=== PATIENT | female | born 1950 | race Caucasian/White ===

== ENCOUNTER 2024-11-10 15:46 | Inpatient (IN) ==
--- NOTE | 2024-11-10 16:37 | Emergency Department Note ---
ED Visit Note I was consulted by the Advanced Practice Provider. I personally made or approved the management plan for the patient. I performed a substantive portion of the visit. This includes the aspects of: MDM. .
--- NOTE | 2024-11-10 16:39 | Emergency Department Note ---
History of Present Illness General Chief complaint: Facial Injury/Pain Stated complaint: SWOLLEN NECK, CHIN, EYES Time Seen by Provider: 11/10/24 16:16 History of Present Illness This is a 74-year-old female that presents to the emergency department via private vehicle with complaints of "swollen neck, chin, eyes". The patient notes this began yesterday earlier in the day. The patient notes that the edema was below her eyes bilaterally and in the neck. She notes the eyes are bit better today but the neck edema persists. She points to the submental region anteriorly as the location of edema. Minimal to no discomfort. She does note some chronic swelling to the left lateral side of the neck where she underwent carotid surgery in June at [facility]. The patient denies any fevers or chills. No nausea or vomiting. No chest pain or shortness of breath. No trouble breathing or swallowing. Home Medications Medication Instructions Recorded Confirmed Type Aspir-81 1 tab PO DAILY 11/10/24 11/10/24 History amlodipine 2.5 mg tablet 2.5 mg PO HS 11/10/24 11/10/24 History atorvastatin 40 mg tablet 40 mg PO QAM 11/10/24 11/10/24 History cyanocobalamin (vitamin B-12) 50 0 mcg PO DAILY 11/10/24 11/10/24 History mcg tablet (Vitamin B-12) escitalopram oxalate 10 mg tablet 10 mg PO QAM 11/10/24 11/10/24 History levothyroxine 112 mcg tablet 112 mcg PO QAM 11/10/24 11/10/24 History lisinopril 10 mg tablet 10 mg PO BID 11/10/24 11/10/24 History metformin 750 mg tablet,extended 750 mg PO QPM 11/10/24 11/10/24 History release 24 hr metoprolol succinate 50 mg 75 mg PO BID 11/10/24 11/10/24 History tablet,extended release 24 hr pantoprazole 40 mg tablet,delayed 40 mg PO BID 11/10/24 11/10/24 History release vit C 250 mg-vit E 90 mg-zinc 40 1 tab PO DAILY 11/10/24 11/10/24 History mg-copper 1 [id number] capsule (PreserVision AREDS-2) Allergies Allergy/AdvReac Type Severity Reaction Status Date / Time No Known Allergies Allergy Unknown Verified 11/10/24 19:18 Past Med/Surg History Problem List (Updated 11/10/24 @ 23:47 by Ravi Rader PA-C) Cellulitis of neck (Acute) Swollen neck (Acute) Social History Smoking Status: Never smoker Second Hand Exposure: No; Do You Dip or Chew Tobacco: No; Tobacco Cessation Education Requested by Patient: No Hx Alcohol Use: Yes Alcohol type: wine Hx Substance Use: No Preferred Language: Maori Communication Ability: Effective Window Tinter Required: No Beliefs That Will Affect Care: None Current Living Situation: Spouse Other Information That Helps Us Care for You: No Feels Safe at Home: Yes Safety Concerns: Feels Safe At This Time Assistive Devices: None Review of Systems A total of 10 systems reviewed and were otherwise negative Physical Exam Vital Signs Vital Signs - 24 hr 11/10/24 15:50 11/10/24 18:23 11/10/24 20:00 Temperature 36.9 C Temperature Source Temporal Artery Scan Pulse Rate 89 Pulse Rate [Finger] 87 70 Pulse Rhythm [Finger] Regular Pulse Strength [Finger] Normal Respiratory Rate 18 18 18 Respiratory Effort / Characteristics Non-Labored Spontaneous Non-Labored Respiratory Depth Normal Normal Respiratory Pattern Regular Regular Blood Pressure 159/83 H Blood Pressure [Right Arm] 155/84 H 139/78 Blood Pressure Mean 108 Blood Pressure Mean [Right Arm] 107 98 Blood Pressure Position [Right Arm] Sitting Pulse Oximetry 97 97 98 Oxygen Delivery Method Room Air Room Air Room Air Sepsis Recent Fever Within 48 Hours No Sepsis New/Unexplained Change in Mental Status N/A Sepsis Action Taken by Nursing No Action Required VITAL SIGNS - Vital signs and nursing notes were reviewed. Hypertensive, otherwise stable and afebrile. GENERAL -74-year-old female appearing her stated age who is in no acute distress. Communicates well with provider and answers questions appropriately. SKIN - Without rashes. There is submental edema noted with some firmness. No fluctuance. HEAD - NC/AT. EYES - PERRL with EOMI bilaterally. Sclera anicteric. EARS - No deformities of external structures noted on gross examination bilaterally. NOSE - Midline and without cyanosis. No epistaxis or purulent drainage noted. MOUTH/OROPHARYNX - Without perioral cyanosis. No drooling, stridor, trismus, wheezing or tripoding. Normal phonation. The right inferior dentition does have some erosion near the gumline with some erythema of the gingiva. NECK - Neck with FROM. There is submental edema noted with some firmness. No crepitus. No fluctuance. This tracks laterally left greater than right. No edema overlying the inferior aspect of the anterior neck. No nuchal rigidity. LUNGS - CTA CARDIAC - RRR ABDOMEN - Abdominal contour normal without pulsations or visible masses. BS normoactive all four quadrants. No tenderness, palpable masses, hepatosplenomegaly, or ascites noted. EXTREMITIES - No clubbing or peripheral cyanosis. +5/5 strength noted in UE/LE bilaterally. NEUROLOGIC - Cranial nerves II through XII grossly intact. PSYCH -alert, oriented and pleasant on exam Course Administered Medications Amlodipine Besylate (Amlodipine Besylate 5 Mg Tab) 2.5 mg PO HS GINI Stop: 12/10/24 22:19 Last Admin: 11/10/24 22:42 Dose: 2.5 mg Documented By: FILIBERTO Sodium Chloride (Nss) 500 mls @ 110 mls/hr IV .Q4H33M GINI Stop: 11/10/24 23:47 Last Infusion: 11/10/24 21:55 Dose: Infused Documented By: Admin: 11/10/24 20:30 Dose: 110 mls/hr Documented By: QIANA Ampicillin Sodium/Sulbactam Sodium (Unasyn) 3,000 mg in 100 mls @ 200 mls/hr IV Q6H GINI Stop: 11/12/24 22:59 Last Admin: 11/10/24 23:02 Dose: 200 mls/hr Documented By: FILIBERTO Lisinopril (Lisinopril 10 Mg Tab) 10 mg PO BID GINI Stop: 12/10/24 22:19 Last Admin: 11/10/24 22:42 Dose: 10 mg Documented By: FILIBERTO Metoprolol Succinate (Metoprolol Succ 25mg Ext Rel Tab) 75 mg PO BID GINI Stop: 12/10/24 22:19 Last Admin: 11/10/24 22:41 Dose: 75 mg Documented By: FILIBERTO Pantoprazole Sodium (Pantoprazole 40 Mg Tab) 40 mg PO BID GINI Stop: 12/10/24 22:19 Last Admin: 11/10/24 22:41 Dose: 40 mg Documented By: FILIBERTO Discontinued Medications Ampicillin Sodium/Sulbactam Sodium (Unasyn) 3,000 mg in 100 mls @ 200 mls/hr IV NOW STA Stop: 11/10/24 19:35 Last Infusion: 11/10/24 20:41 Dose: Infused Documented By: Admin: 11/10/24 19:26 Dose: 200 mls/hr Documented By: QIANA Ioversol (Optiray 320 100ml) 93 ml IV ONCE ONE Stop: 11/10/24 18:09 Last Admin: 11/10/24 18:08 Dose: 93 ml Documented By: FERN Medical Decision Making Laboratory Data 11/10/24 16:57 11/10/24 16:57 Lab Results 11/10/24 11/10/24 Range/Units 16:57 18:42 WBC 8.18 (4.8-10.8) K/ul RBC 3.31 L (4.20-5.40) M/uL Hgb 9.9 L (12.0-16.0) g/dl Hct 30.1 L (37.0-47.0) % MCV 90.9 (80.0-100.0) fL MCH 29.9 (25.0-34.0) pg MCHC 32.9 (32.0-36.0) g/dL RDW Std Deviation 42.6 (36.4-46.3) fL RDW Coeff of Fabiana 12.9 (11.5-14.5) % Plt Count 236 (130-400) K/uL MPV 9.2 L (9.4-12.4) fL Immature Gran % (Auto) 0.4 % Neut % (Auto) 68.5 % Lymph % (Auto) 17.8 % Mayes % (Auto) 9.3 % Eos % (Auto) 3.3 % Baso % (Auto) 0.7 % Neut # (Auto) 5.60 (1.40-6.50) K/uL Lymph # (Auto) 1.46 (1.20-3.40) K/uL Mayes # (Auto) 0.76 H (0.11-0.59) K/uL Eos # (Auto) 0.27 (0.00-0.50) K/uL Baso # (Auto) 0.06 (0.00-0.20) K/uL Immature Gran # (Auto) 0.03 (0.01-0.20) K/uL Sodium 138 (136-145) mmol/L Potassium 3.9 (3.5-5.1) mmol/L Chloride 105 (98-107) mmol/L Carbon Dioxide 25 (21-32) mmol/L Anion Gap 8 (3-11) BUN 25 H (6-23) mg/dl Creatinine 1.01 (0.6-1.2) mg/dl Est Cr Clr Drug Dosing 46.0 ml/min eGFR 58.42 BUN/Creatinine Ratio 24.8 H (10-20) Glucose 87 (70-99(Fasting)) mg/dl Calcium 9.2 (8.6-10.3) mg/dl Total Bilirubin 0.5 (0.2-1.0) mg/dl AST 13 (13-39) U/L ALT 11 (7-52) U/L Alkaline Phosphatase 48 (34-104) U/L Total Protein 6.1 (6.0-8.3) gm/dl Albumin 4.3 (3.4-5.0) gm/dl Globulin 1.8 L (2.5-4.0) gm/dl Albumin/Globulin Ratio 2.4 H (0.9-2) Procalcitonin < 0.02 (0-0.5) ng/ml Imaging Data Radiologist's Impression: Soft Tissue Neck CT 11/10/24 16:39 Clinical history: Submental edema Technique: Axial computed tomography images were obtained of the neck after the administration of intravenous contrast Findings: There is mild subcutaneous edema in the submental space and the anterior neck. The salivary glands appear unremarkable. There are small and mildly prominent submental and submandibular space lymph nodes, measuring up to 1 cm in short axis. No overt adenopathy is seen. No definite soft tissue mass is identified and no focal fluid collection is noted. No foreign body is evident No tonsillar enlargement is seen. There is no sign of epiglottitis or prevertebral inflammation. No definite abnormality of the larynx is noted. The thyroid gland is diminutive or absent. There are moderate severity stenoses of the carotid bulbs bilaterally. There is also an apparent moderate severity stenosis of the origin of the left subclavian artery. There are mucus retention cysts in the maxillary sinuses bilaterally. There is nasal septal deviation towards the right. There is mild partial opacification of the mastoid air cells. There is degenerative disc disease and osteoarthritis of the cervical spine. There is suspected pleural thickening in the lung apices Impression: 1. Mild subcutaneous edema anteriorly that could be due to cellulitis 2. No definite abscess or other Location 3. Mildly prominent lymph nodes without overt adenopathy 4. Chronic sinusitis 5. Atherosclerosis with moderate severity stenoses of the carotid bulbs bilaterally and of the proximal left subclavian artery 6. Mild partial opacification of the mastoid air cells, which may be due to inflammatory mastoiditis ACT 112: Positive. There are findings on this exam that require communication between the performing entity and the patient following Patient Test Result Information Act ([place] ACT 112) guidelines. Electronically signed by Teodoro Ramirez 11-10-2024 6:40 PM MDM Narrative Patient was seen and evaluated as above in room D2A. Review was performed of triage nursing notes and vital signs. I did review pertinent previous visits and patient history. After obtaining a thorough history and physical examination the above work up was performed. Patient presents to us today for evaluation of swelling to the anterior neck, and points to the submental region where on examination there is some fullness/edema that is somewhat firm without fluctuance. This tracks laterally toward the angle of the mandible left greater than right. Patient does note chronic edema to the left lateral superior neck where she had her carotid surgery back in June. She notes that she was informed this is expected however notes that the edema now in the submental region is all new as of yesterday. The patient otherwise is clinically well- appearing and nontoxic. There is perhaps a small amount of edema noted to the premaxillary soft tissues. Small amount of erythema to the premaxillary soft tissues. No erythema overlying the submental region. There is no drooling, stridor, trismus, wheezing or tripoding. Normal phonation. No evidence of airway compromise clinically. Options of care were discussed with the patient. IV access was established. Labs were drawn. There is no leukocytosis. There is anemia noted with hemoglobin of 9.9 but will note this is stable compared to previous. I did review the [employer] EMR and the patient's hemoglobin on 08/05/2024 was 9.5. Today there is mild elevation of BUN at 25. Glucose 87. No transaminitis. Pro-Erwin undetectable. Clinically no evidence of sepsis. Benefit versus risk of CT imaging reviewed with the patient and it is felt that the benefit of a contrasted CT scan outweighs the risk. CT scan of the neck soft tissue was obtained and is as above. There is comment of mild subcutaneous edema anteriorly could be due to cellulitis which I do agree with clinically. Other incidentals noted which I reviewed with the patient. I did discuss presentation with the on-call oral maxillofacial surgeon, Dr. Perry. Although there is no clinical evidence of abscess, on examination there is a fair amount of fullness noted at the submental region. I am concerned about a developing infection to this area. We discussed options. I do believe it would be best to have the patient stay in the hospital for IV antibiotics. Patient will be admitted by the medicine service. Case discussed with the hospitalist service. Please refer to further documentation regarding her stay. I did order IV antibiotics for the patient as well as IV maintenance fluids. GCS: 15 In the evaluation and treatment of this patient the following differential diagnoses were entertained: Cellulitis, abscess, Myles angina, allergic reaction, electrolyte disturbance, among others. Impression & Plan Cellulitis of neck, Swollen neck Discharge Plan Visit Data Chief Complaint: Facial Injury/Pain Stated Complaint: SWOLLEN NECK, CHIN, EYES ED Provider: Adiel Toscano ED Midlevel Provider: Ravi Rader Discharge Problem: Cellulitis of neck, Swollen neck Patient Disposition: Admitted As Inpatient Condition: Good Discharge Instructions Interventions: ED Discharge Assessment Last Done: 11/10/24 21:40
[2024-11-10 17:30] LABS: Basophils # (auto) 0.06 K/uL (0.00-0.20); Basophils % (auto) 0.7 %; Eosinophils # (auto) 0.27 K/uL (0.00-0.50); Eosinophils % (auto) 3.3 %; Hematocrit (blood only) 30.1 % (37.0-47.0); Hemoglobin 9.9 g/dl (12.0-16.0); Immature Granulocytes # (auto) 0.03 K/uL (0.01-0.20); Immature Granulocytes % (auto) 0.4 %; Lymphocytes # (auto) 1.46 K/uL (1.20-3.40); Lymphocytes % (auto) 17.8 %; Mean Corpuscular Hemoglobin 29.9 pg (25.0-34.0); Mean Corpuscular Hgb Conc 32.9 g/dL (32.0-36.0); Mean Corpuscular Volume 90.9 fL (80.0-100.0); Mean Platelet Volume 9.2 fL (9.4-12.4); Monocytes # (auto) 0.76 K/uL (0.11-0.59); Monocytes % (auto) 9.3 %; Neutrophils % (auto) 68.5 %; Platelet Count 236 K/uL (130-400); RDW Coefficient of Variation 12.9 % (11.5-14.5); RDW Standard Deviation 42.6 fL (36.4-46.3); Red Blood Count 3.31 M/uL (4.20-5.40); White Blood Count 8.18 K/ul (4.8-10.8)
[2024-11-10 17:50] LABS: Albumin Globulin Ratio 2.4 (0.9-2); Albumin Level 4.3 gm/dl (3.4-5.0); BUN Creatinine Ratio 24.8 (10-20); Bilirubin,Total 0.5 mg/dl (0.2-1.0); Calcium 9.2 mg/dl (8.6-10.3); Globulin 1.8 gm/dl (2.5-4.0); Potassium 3.9 mmol/L (3.5-5.1); Total Protein 6.1 gm/dl (6.0-8.3)
[2024-11-10] MEDS: OPTIRAY 320 100ml IV ONE (18:08)
--- NOTE | 2024-11-10 18:40 | CT Scan Report ---
Clinical history: Submental edema Technique: Axial computed tomography images were obtained of the neck after the administration of intravenous contrast Findings: There is mild subcutaneous edema in the submental space and the anterior neck. The salivary glands appear unremarkable. There are small and mildly prominent submental and submandibular space lymph nodes, measuring up to 1 cm in short axis. No overt adenopathy is seen. No definite soft tissue mass is identified and no focal fluid collection is noted. No foreign body is evident No tonsillar enlargement is seen. There is no sign of epiglottitis or prevertebral inflammation. No definite abnormality of the larynx is noted. The thyroid gland is diminutive or absent. There are moderate severity stenoses of the carotid bulbs bilaterally. There is also an apparent moderate severity stenosis of the origin of the left subclavian artery. There are mucus retention cysts in the maxillary sinuses bilaterally. There is nasal septal deviation towards the right. There is mild partial opacification of the mastoid air cells. There is degenerative disc disease and osteoarthritis of the cervical spine. There is suspected pleural thickening in the lung apices Impression: 1. Mild subcutaneous edema anteriorly that could be due to cellulitis 2. No definite abscess or other Location 3. Mildly prominent lymph nodes without overt adenopathy 4. Chronic sinusitis 5. Atherosclerosis with moderate severity stenoses of the carotid bulbs bilaterally and of the proximal left subclavian artery 6. Mild partial opacification of the mastoid air cells, which may be due to inflammatory mastoiditis ACT 112: Positive. There are findings on this exam that require communication between the performing entity and the patient following Patient Test Result Information Act ([place] ACT 112) guidelines. Electronically signed by Teodoro Ramirez 11-10-2024 6:40 PM
[2024-11-10] MEDS: AMPICILLIN/SULBACTAM SOD 3,000 MG/100 ML BAG IV STA (19:26)
[2024-11-10] MEDS: SODIUM CHLORIDE 0.9% 500 ML IV SCH (20:30)
--- NOTE | 2024-11-10 20:47 | History & Physical Report ---
Date of Service November 10, 2024 Assessment & Plan (1) Swollen neck: Plan: 74 years old female with past medical history of diabetes, hypertension, dyslipidemia, CAD status post carotid surgery in July presented to the ER with swelling under his chin/anterior neck area. Soft tissue CT neck showed mild subcutaneous edema anteriorly that could be due to cellulitis WBC within normal limit Received IV Unasyn in the ER, will continue antibiotic for now ER provider discussed the case with Oral maxillofacial Dr. Perry, that plan to eval her tomorrow Will consult OMF Dr. Perry Denies any shortness of breath, dysphagia, saturated well on RA Continue monitor closely S/P Carotid surgery CT showed atherosclerosis with moderate severity stenoses of the carotid bulbs bilaterally and of the proximal left subclavian artery Continue aspirin 81 mg and statin Hypertension Continue amlodipine 2.5mg and lisinopril 10 mg twice daily and Metoprolol Diabetes Will hold metformin due to recent IV contrast Will place on insulin sliding scale Will check hemoglobin A1c in the a.m. Anemia Hemoglobin 9.9 Denies any sign of abnormal bleeding such as hematuria or blood in stool Continue monitor CBC Hypothyroidism Continue levothyroxine 112 mcg Check TSH in a.m. GI prophylaxis Continue pantoprazole DVT prophylaxis heparin subcu daily CODE STATUS Full code History of Present Illness Chief Complaint: Swollen chin Primary Care Provider: Evelyn Cook DO 74 years old female with past medical history of diabetes, hypertension, dyslipidemia, CAD status post carotid surgery in July presented to the ER with swelling under his chin/anterior neck area. Patient said on Friday she noted her chin and under her both eyes were puffy. She said her daughter said she might be dehydrated. She tried to increase her water intake to hydrate herself. She said the edema under her eyes improved but her neck did not show any improvement. Pt said that she just got back from her vacation after a [address]; she went to the urgent care that sent her to the ER. She said that she had left carotid surgery done in July and she had some numbness around his left ear. Pt said said she does not have any pain or erythema around her neck. Soft tissue CT neck showed mild subcutaneous edema anteriorly that could be due to cellulitis. No definite abscess. Denies any fever, chills, shortness of breath, dysphagia, palpitation and chest pain. Allergies Allergy/AdvReac Type Severity Reaction Status Date / Time No Known Allergies Allergy Unknown Verified 11/10/24 19:18 Home Medications Medication Instructions Recorded Confirmed Type Aspir-81 1 tab PO DAILY 11/10/24 11/10/24 History amlodipine 2.5 mg tablet 2.5 mg PO HS 11/10/24 11/10/24 History atorvastatin 40 mg tablet 40 mg PO QAM 11/10/24 11/10/24 History cyanocobalamin (vitamin B-12) 50 0 mcg PO DAILY 11/10/24 11/10/24 History mcg tablet (Vitamin B-12) escitalopram oxalate 10 mg tablet 10 mg PO QAM 11/10/24 11/10/24 History levothyroxine 112 mcg tablet 112 mcg PO QAM 11/10/24 11/10/24 History lisinopril 10 mg tablet 10 mg PO BID 11/10/24 11/10/24 History metformin 750 mg tablet,extended 750 mg PO QPM 11/10/24 11/10/24 History release 24 hr metoprolol succinate 50 mg 75 mg PO BID 11/10/24 11/10/24 History tablet,extended release 24 hr pantoprazole 40 mg tablet,delayed 40 mg PO BID 11/10/24 11/10/24 History release vit C 250 mg-vit E 90 mg-zinc 40 1 tab PO DAILY 11/10/24 11/10/24 History mg-copper 1 [id number] capsule (PreserVision AREDS-2) Past Med/Surg History Problem List (Updated 11/10/24 @ 23:47 by Ravi Rader PA-C) Cellulitis of neck (Acute) Swollen neck (Acute) Social History Smoking Status: Never smoker Second Hand Exposure: No; Do You Dip or Chew Tobacco: No; Tobacco Cessation Education Requested by Patient: No Hx Alcohol Use: Yes Alcohol type: wine Hx Substance Use: No Preferred Language: Malian Communication Ability: Effective Aircraft Inspector Required: No Beliefs That Will Affect Care: None Current Living Situation: Spouse Other Information That Helps Us Care for You: No Feels Safe at Home: Yes Safety Concerns: Feels Safe At This Time Assistive Devices: None Review of Systems Review of Systems: All systems reviewed & are unremarkable except as noted in HPI & below Physical Exam Physical Exam: General- No acute distress Head- atraumatic Eyes- PERRL, EOMI, ENT- oropharynx clear Neck- supple, no JVD, surgical scar from left carotid surgery, submental edema noted with firmness. Lungs- clear to auscultation Heart- regular rhythm; no murmur Abdomen- normal bowel sounds, soft, nontender Extremities- no calf tenderness, +trace edema Neuro- alert, oriented x 3; PERRL, EOMI; no facial palsy; no dysarthria Skin- warm & dry Results & Data Results & Data Vital Signs (Past 12 Hours) Vital Signs Temp Pulse Pulse Resp BP BP Pulse Ox 11/10/24 18:23 87 18 155/84 H 97 11/10/24 15:50 36.9 C 89 18 159/83 H 97 O2 Del Method 11/10/24 18:23 Room Air 11/10/24 15:50 Room Air Diagnostic Findings Laboratory Results WBC 8.18 K/ul (4.8-10.8) 11/10/24 16:57 RBC 3.31 M/uL (4.20-5.40) L 11/10/24 16:57 Hgb 9.9 g/dl (12.0-16.0) L 11/10/24 16:57 Hct 30.1 % (37.0-47.0) L 11/10/24 16:57 MCV 90.9 fL (80.0-100.0) 11/10/24 16:57 MCH 29.9 pg (25.0-34.0) 11/10/24 16:57 MCHC 32.9 g/dL (32.0-36.0) 11/10/24 16:57 RDW Std Deviation 42.6 fL (36.4-46.3) 11/10/24 16:57 RDW Coeff of Fabiana 12.9 % (11.5-14.5) 11/10/24 16:57 Plt Count 236 K/uL (130-400) 11/10/24 16:57 MPV 9.2 fL (9.4-12.4) L 11/10/24 16:57 Immature Gran % (Auto) 0.4 % 11/10/24 16:57 Neut % (Auto) 68.5 % 11/10/24 16:57 Lymph % (Auto) 17.8 % 11/10/24 16:57 [place] % (Auto) 9.3 % 11/10/24 16:57 Eos % (Auto) 3.3 % 11/10/24 16:57 Baso % (Auto) 0.7 % 11/10/24 16:57 Neut # (Auto) 5.60 K/uL (1.40-6.50) 11/10/24 16:57 Lymph # (Auto) 1.46 K/uL (1.20-3.40) 11/10/24 16:57 [place] # (Auto) 0.76 K/uL (0.11-0.59) H 11/10/24 16:57 Eos # (Auto) 0.27 K/uL (0.00-0.50) 11/10/24 16:57 Baso # (Auto) 0.06 K/uL (0.00-0.20) 11/10/24 16:57 Immature Gran # (Auto) 0.03 K/uL (0.01-0.20) 11/10/24 16:57 Sodium 138 mmol/L (136-145) 11/10/24 16:57 Potassium 3.9 mmol/L (3.5-5.1) 11/10/24 16:57 Chloride 105 mmol/L (98-107) 11/10/24 16:57 Carbon Dioxide 25 mmol/L (21-32) 11/10/24 16:57 Anion Gap 8 (3-11) 11/10/24 16:57 BUN 25 mg/dl (6-23) H 11/10/24 16:57 Creatinine 1.01 mg/dl (0.6-1.2) 11/10/24 16:57 Est Cr Clr Drug Dosing 46.0 ml/min 11/10/24 16:57 eGFR 58.42 11/10/24 16:57 BUN/Creatinine Ratio 24.8 (10-20) H 11/10/24 16:57 Glucose 87 mg/dl (70-99(Fasting)) 11/10/24 16:57 Calcium 9.2 mg/dl (8.6-10.3) 11/10/24 16:57 Total Bilirubin 0.5 mg/dl (0.2-1.0) 11/10/24 16:57 AST 13 U/L (13-39) 11/10/24 16:57 ALT 11 U/L (7-52) 11/10/24 16:57 Alkaline Phosphatase 48 U/L (34-104) 11/10/24 16:57 Total Protein 6.1 gm/dl (6.0-8.3) 11/10/24 16:57 Albumin 4.3 gm/dl (3.4-5.0) 11/10/24 16:57 Globulin 1.8 gm/dl (2.5-4.0) L 11/10/24 16:57 Albumin/Globulin Ratio 2.4 (0.9-2) H 11/10/24 16:57 Procalcitonin < 0.02 ng/ml (0-0.5) 11/10/24 18:42 Impressions Soft Tissue Neck CT 11/10/24 16:39 Clinical history: Submental edema Technique: Axial computed tomography images were obtained of the neck after the administration of intravenous contrast Findings: There is mild subcutaneous edema in the submental space and the anterior neck. The salivary glands appear unremarkable. There are small and mildly prominent submental and submandibular space lymph nodes, measuring up to 1 cm in short axis. No overt adenopathy is seen. No definite soft tissue mass is identified and no focal fluid collection is noted. No foreign body is evident No tonsillar enlargement is seen. There is no sign of epiglottitis or prevertebral inflammation. No definite abnormality of the larynx is noted. The thyroid gland is diminutive or absent. There are moderate severity stenoses of the carotid bulbs bilaterally. There is also an apparent moderate severity stenosis of the origin of the left subclavian artery. There are mucus retention cysts in the maxillary sinuses bilaterally. There is nasal septal deviation towards the right. There is mild partial opacification of the mastoid air cells. There is degenerative disc disease and osteoarthritis of the cervical spine. There is suspected pleural thickening in the lung apices Impression: 1. Mild subcutaneous edema anteriorly that could be due to cellulitis 2. No definite abscess or other Location 3. Mildly prominent lymph nodes without overt adenopathy 4. Chronic sinusitis 5. Atherosclerosis with moderate severity stenoses of the carotid bulbs bilaterally and of the proximal left subclavian artery 6. Mild partial opacification of the mastoid air cells, which may be due to inflammatory mastoiditis ACT 112: Positive. There are findings on this exam that require communication between the performing entity and the patient following Patient Test Result Information Act ([place] ACT 112) guidelines. Electronically signed by Teodoro Ramirez 11-10-2024 6:40 PM
[2024-11-10] MEDS: PANTOprazole 40 MG TAB PO SCH (22:41)
[2024-11-10] MEDS: METOPROLOL SUCC 25MG EXT REL TAB PO SCH (22:41)
[2024-11-10] MEDS: amLODIPine BESYLATE 5 MG TAB PO SCH (22:42)
[2024-11-10] MEDS: lisinopril 10 MG TAB PO SCH (22:42)
[2024-11-10] MEDS ORDERED: GLUCAGON FOR INJ 1 MG VIAL SQ PRN (22:54)
[2024-11-10] MEDS ORDERED: DEXTROSE 50% 50 ML SYRINGE IV PRN (22:54)
[2024-11-10] MEDS ORDERED: GLUCOSE 40% GEL 15 GM TUBE PO PRN (22:54)
[2024-11-10] MEDS ORDERED: CARBOHYDRATES FOR HYPOGLYCEMIA PO PRN (22:54)
[2024-11-10] MEDS ORDERED: GLUCOSE 10 TAB/TUBE PO PRN (22:54)
[2024-11-10] MEDS: AMPICILLIN/SULBACTAM SOD 3,000 MG/100 ML BAG IV SCH (23:02)
[2024-11-11] MEDS: LEVOTHYROXINE SODIUM 112 MCG TABLET PO SCH (05:39)
[2024-11-11] MEDS ORDERED: HEPARIN SOD 5,000 UNIT/0.5 ML VIAL SQ SCH (06:00)
[2024-11-11 06:31] LABS: Hematocrit (blood only) 30.7 % (37.0-47.0); Hemoglobin 10.4 g/dl (12.0-16.0); Mean Corpuscular Hemoglobin 30.9 pg (25.0-34.0); Mean Corpuscular Hgb Conc 33.9 g/dL (32.0-36.0); Mean Corpuscular Volume 91.1 fL (80.0-100.0); Mean Platelet Volume 9.1 fL (9.4-12.4); Platelet Count 234 K/uL (130-400); RDW Coefficient of Variation 12.7 % (11.5-14.5); RDW Standard Deviation 41.9 fL (36.4-46.3); Red Blood Count 3.37 M/uL (4.20-5.40); White Blood Count 6.54 K/ul (4.8-10.8)
[2024-11-11 06:50] LABS: BUN Creatinine Ratio 22.6 (10-20); Calcium 8.8 mg/dl (8.6-10.3); Creatinine Clr Calc Pharmacy 49.9 ml/min
[2024-11-11 07:05] LABS: Thyroid Stimulating Hormone 1.442 uIu/ml (0.300-4.500)
[2024-11-11 07:16] LABS: Estimated Average Glucose 128 mg/dl; Hemoglobin A1C 6.1 % (4.5-5.6)
[2024-11-11 07:32] VITALS: BP 137/80; PULSE 75; RESP 18; TEMP 98.1; O2SAT 96
[2024-11-11] MEDS: INSULIN ASPART PER UNIT CHARGE SC SCH (08:37)
[2024-11-11] MEDS: HEPARIN SOD 5,000 UNIT/0.5 ML VIAL SQ SCH (08:41)
[2024-11-11] MEDS: ASPIRIN 81 MG ECTAB PO SCH (08:44)
[2024-11-11] MEDS: ESCITALOPRAM OXALATE 10 MG TAB PO SCH (08:45)
[2024-11-11] MEDS: ATORVASTATIN 40 MG TAB PO SCH (08:45)
[2024-11-11] MEDS ORDERED: NON-FORMULARY MEDICATION (Vit C,E-Zn-Coppr-Lutein-Zeaxan [Preservision Areds-2] 250-90-40- PO SCH (09:00)
[2024-11-11] MEDS ORDERED: NON-FORMULARY MEDICATION (Cyanocobalamin (Vitamin B-12) [Vitamin B-12] 50 mcg Tablet) PO SCH (09:00)
--- NOTE | 2024-11-11 12:03 | Hospitalist Progress Note ---
Date of Service November 11, 2024 Assessment & Plan (1) Swollen neck: Plan: 74 years old female with past medical history of diabetes, hypertension, dyslipidemia, CAD status post carotid surgery in July presented to the ER with swelling under his chin/anterior neck area. Soft tissue CT neck showed mild subcutaneous edema anteriorly that could be due to cellulitis Neck/Periorbital Swelling: Cellulitis/Allergic reaction Possible Mastoiditis Patient reports having some left sided neck swelling at site of prior left carotid endarterectomy Allergic reaction likely secondary to seafood Vs Dander Currently denies any shortness of breath, dysphagia, odynophagia --Neck CT:Mild subcutaneous edema anteriorly that could be due to cellulitis. No definite abscess or other Location. Mildly prominent lymph nodes without overt adenopathy. Chronic sinusitis. Atherosclerosis with moderate severity stenoses of the carotid bulbs bilaterally and of the proximal left subclavian artery. Mild partial opacification of the mastoid air cells, which may be due to inflammatory mastoiditis -- No signs of sepsis -- Normal TSH, procalcitonin levels Continue IV's Unasyn>> transition to Augmentin on discharge Discussed with oromaxillary surgery Dr. Perry today: Recommends steroid taper course. Will need follow-up with Dr. Perry and duplication specialist Dr. Gurrola. Patient understands and agrees Will start on prednisone tapering course Plan to discharge home today S/P Carotid surgery CT showed atherosclerosis with moderate severity stenoses of the carotid bulbs bilaterally and of the proximal left subclavian artery Continue aspirin 81 mg and statin Hypertension Continue amlodipine 2.5mg and lisinopril 10 mg twice daily and Metoprolol Monitor blood pressure DM II HbA1c 6.1 Hold oral medications Continue insulin while hospitalized per protocol Monitor blood glucose levels Normocytic Anemia Hb 10.4 today Denies any sign of abnormal bleeding such as hematuria or blood in stool Continue monitor CBC Further workup as outpatient Hypothyroidism Normal TSH Continue levothyroxine 112 mcg GI prophylaxis Continue pantoprazole DVT Px: Heparin SQ CODE STATUS Full code Disposition Home Admission and Anticipated Discharge Date Admission Date: November 10, 2024 Subjective Patient is seen and examined at bedside States feeling much better today Swelling of the periorbital region much improved Still has neck swelling Denies any chest pain, dyspnea, dizziness, nausea, vomiting, abdominal pain, dysphagia, odynophagia Review of Systems Review of Systems: All systems reviewed & are unremarkable except as noted in Subjective Physical Exam Physical Exam: Physical Exam: Vitals signs as noted above General Appearance:Moderately built and nourished, no apparent distress Head: normocephalic, Atraumatic Eyes: normal inspection, EOMI, periorbital swelling improved/resolved Neck: supple, Trachea midline,+Left carotid postsurgical region, submental swelling Respiratory/Chest: Normal breath sounds, CTA, No accessory muscle use Cardiovascular: S1, S2, No murmur Abdomen/GI:Soft, Non tender, Bowel sounds present Extremities/Musculoskeletal:normal inspection, no edema Neurologic/Psych:AAOX3, grossly no focal neurological deficits Skin: normal color, warm Results & Data Results & Data Vital Signs (Past 12 Hours) Vital Signs Temp Pulse Resp BP Pulse Ox O2 Del Method 11/11/24 07:52 Room Air 11/11/24 07:28 36.7 C 75 18 137/80 96 Room Air Laboratory Results Short CBC 11/10/24 11/11/24 Range/Units 16:57 05:55 WBC 8.18 6.54 (4.8-10.8) K/ul Hgb 9.9 L 10.4 L (12.0-16.0) g/dl Hct 30.1 L 30.7 L (37.0-47.0) % Plt Count 236 234 (130-400) K/uL BMP 11/10/24 11/11/24 16:57 05:55 Sodium 138 138 Potassium 3.9 4.0 Chloride 105 103 Carbon Dioxide 25 28 BUN 25 H 21 Creatinine 1.01 0.93 Glucose 87 103 H Calcium 9.2 8.8 Liver Function 11/10/24 Range/Units 16:57 Total Bilirubin 0.5 (0.2-1.0) mg/dl AST 13 (13-39) U/L ALT 11 (7-52) U/L Alkaline Phosphatase 48 (34-104) U/L Albumin 4.3 (3.4-5.0) gm/dl
--- NOTE | 2024-11-11 13:01 | Discharge Summary ---
Date of Service November 11, 2024 Admission HPI Per Admitting Provider 74 years old female with past medical history of diabetes, hypertension, dyslipidemia, CAD status post carotid surgery in July presented to the ER with swelling under his chin/anterior neck area. Patient said on Friday she noted her chin and under her both eyes were puffy. She said her daughter said she might be dehydrated. She tried to increase her water intake to hydrate herself. She said the edema under her eyes improved but her neck did not show any improvement. Pt said that she just got back from her vacation after a [address]; she went to the urgent care that sent her to the ER. She said that she had left carotid surgery done in July and she had some numbness around his left ear. Pt said said she does not have any pain or erythema around her neck. Soft tissue CT neck showed mild subcutaneous edema anteriorly that could be due to cellulitis. No definite abscess. Denies any fever, chills, shortness of breath, dysphagia, palpitation and chest pain. Admission Exam Per Admitting Provider General- No acute distress Head- atraumatic Eyes- PERRL, EOMI, ENT- oropharynx clear Neck- supple, no JVD, surgical scar from left carotid surgery, submental edema noted with firmness. Lungs- clear to auscultation Heart- regular rhythm; no murmur Abdomen- normal bowel sounds, soft, nontender Extremities- no calf tenderness, +trace edema Neuro- alert, oriented x 3; PERRL, EOMI; no facial palsy; no dysarthria Skin- warm & dry Principal Diagnosis Neck/Periorbital Swelling: Cellulitis/Allergic reaction Possible Mastoiditis Discharge Data Allergies Allergy/AdvReac Type Severity Reaction Status Date / Time No Known Allergies Allergy Unknown Verified 11/10/24 19:18 Consultations 11/10/24 19:43 ED Decision to Admit Stat 11/10/24 22:31 Consult Oromaxillofacial Surgery Routine Procedures Performed Laboratory Results WBC 6.54 K/ul (4.8-10.8) 11/11/24 05:55 RBC 3.37 M/uL (4.20-5.40) L 11/11/24 05:55 Hgb 10.4 g/dl (12.0-16.0) L 11/11/24 05:55 Hct 30.7 % (37.0-47.0) L 11/11/24 05:55 MCV 91.1 fL (80.0-100.0) 11/11/24 05:55 MCH 30.9 pg (25.0-34.0) 11/11/24 05:55 MCHC 33.9 g/dL (32.0-36.0) 11/11/24 05:55 RDW Std Deviation 41.9 fL (36.4-46.3) 11/11/24 05:55 RDW Coeff of Fabiana 12.7 % (11.5-14.5) 11/11/24 05:55 Plt Count 234 K/uL (130-400) 11/11/24 05:55 MPV 9.1 fL (9.4-12.4) L 11/11/24 05:55 Immature Gran % (Auto) 0.4 % 11/10/24 16:57 Neut % (Auto) 68.5 % 11/10/24 16:57 Lymph % (Auto) 17.8 % 11/10/24 16:57 [place] % (Auto) 9.3 % 11/10/24 16:57 Eos % (Auto) 3.3 % 11/10/24 16:57 Baso % (Auto) 0.7 % 11/10/24 16:57 Neut # (Auto) 5.60 K/uL (1.40-6.50) 11/10/24 16:57 Lymph # (Auto) 1.46 K/uL (1.20-3.40) 11/10/24 16:57 [place] # (Auto) 0.76 K/uL (0.11-0.59) H 11/10/24 16:57 Eos # (Auto) 0.27 K/uL (0.00-0.50) 11/10/24 16:57 Baso # (Auto) 0.06 K/uL (0.00-0.20) 11/10/24 16:57 Immature Gran # (Auto) 0.03 K/uL (0.01-0.20) 11/10/24 16:57 Sodium 138 mmol/L (136-145) 11/11/24 05:55 Potassium 4.0 mmol/L (3.5-5.1) 11/11/24 05:55 Chloride 103 mmol/L (98-107) 11/11/24 05:55 Carbon Dioxide 28 mmol/L (21-32) 11/11/24 05:55 Anion Gap 7 (3-11) 11/11/24 05:55 BUN 21 mg/dl (6-23) 11/11/24 05:55 Creatinine 0.93 mg/dl (0.6-1.2) 11/11/24 05:55 Est Cr Clr Drug Dosing 49.9 ml/min 11/11/24 05:55 eGFR 64.50 11/11/24 05:55 BUN/Creatinine Ratio 22.6 (10-20) H 11/11/24 05:55 Glucose 103 mg/dl (70-99(Fasting)) H 11/11/24 05:55 POC Glucose 100 mg/dl (70-99) H 11/11/24 11:40 Estimat Average Glucose 128 mg/dl 11/11/24 05:55 Hemoglobin A1c 6.1 % (4.5-5.6) H 11/11/24 05:55 Calcium 8.8 mg/dl (8.6-10.3) 11/11/24 05:55 Total Bilirubin 0.5 mg/dl (0.2-1.0) 11/10/24 16:57 AST 13 U/L (13-39) 11/10/24 16:57 ALT 11 U/L (7-52) 11/10/24 16:57 Alkaline Phosphatase 48 U/L (34-104) 11/10/24 16:57 Total Protein 6.1 gm/dl (6.0-8.3) 11/10/24 16:57 Albumin 4.3 gm/dl (3.4-5.0) 11/10/24 16:57 Globulin 1.8 gm/dl (2.5-4.0) L 11/10/24 16:57 Albumin/Globulin Ratio 2.4 (0.9-2) H 11/10/24 16:57 Procalcitonin < 0.02 ng/ml (0-0.5) 11/10/24 18:42 TSH 1.442 uIu/ml (0.300-4.500) 11/11/24 05:55 Impressions Soft Tissue Neck CT 11/10/24 16:39 Clinical history: Submental edema Technique: Axial computed tomography images were obtained of the neck after the administration of intravenous contrast Findings: There is mild subcutaneous edema in the submental space and the anterior neck. The salivary glands appear unremarkable. There are small and mildly prominent submental and submandibular space lymph nodes, measuring up to 1 cm in short axis. No overt adenopathy is seen. No definite soft tissue mass is identified and no focal fluid collection is noted. No foreign body is evident No tonsillar enlargement is seen. There is no sign of epiglottitis or prevertebral inflammation. No definite abnormality of the larynx is noted. The thyroid gland is diminutive or absent. There are moderate severity stenoses of the carotid bulbs bilaterally. There is also an apparent moderate severity stenosis of the origin of the left subclavian artery. There are mucus retention cysts in the maxillary sinuses bilaterally. There is nasal septal deviation towards the right. There is mild partial opacification of the mastoid air cells. There is degenerative disc disease and osteoarthritis of the cervical spine. There is suspected pleural thickening in the lung apices Impression: 1. Mild subcutaneous edema anteriorly that could be due to cellulitis 2. No definite abscess or other Location 3. Mildly prominent lymph nodes without overt adenopathy 4. Chronic sinusitis 5. Atherosclerosis with moderate severity stenoses of the carotid bulbs bilaterally and of the proximal left subclavian artery 6. Mild partial opacification of the mastoid air cells, which may be due to inflammatory mastoiditis ACT 112: Positive. There are findings on this exam that require communication between the performing entity and the patient following Patient Test Result Information Act ([place] ACT 112) guidelines. Electronically signed by Teodoro Ramirez 11-10-2024 6:40 PM Ordered Studies 11/10/24 16:39 CT soft tissue neck w con Stat Hospital Course (1) Swollen neck: 74 years old female with past medical history of diabetes, hypertension, dyslipidemia, CAD status post carotid surgery in July presented to the ER with swelling under his chin/anterior neck area. Soft tissue CT neck showed mild subcutaneous edema anteriorly that could be due to cellulitis Neck/Periorbital Swelling: Cellulitis/Allergic reaction Possible Mastoiditis Patient reports having some left sided neck swelling at site of prior left carotid endarterectomy Allergic reaction likely secondary to seafood Vs Dander Currently denies any shortness of breath, dysphagia, odynophagia --Neck CT:Mild subcutaneous edema anteriorly that could be due to cellulitis. No definite abscess or other Location. Mildly prominent lymph nodes without overt adenopathy. Chronic sinusitis. Atherosclerosis with moderate severity stenoses of the carotid bulbs bilaterally and of the proximal left subclavian artery. Mild partial opacification of the mastoid air cells, which may be due to inflammatory mastoiditis -- No signs of sepsis -- Normal TSH, procalcitonin levels Continue IV's Unasyn>> transition to Augmentin on discharge Discussed with oromaxillary surgery Dr. Perry today: Recommends steroid taper course. Will need follow-up with Dr. Perry and nerve specialist Dr. Gurrola. Patient understands and agrees Will start on prednisone tapering course Plan to discharge home today S/P Carotid surgery CT showed atherosclerosis with moderate severity stenoses of the carotid bulbs bilaterally and of the proximal left subclavian artery Continue aspirin 81 mg and statin Hypertension Continue amlodipine 2.5mg and lisinopril 10 mg twice daily and Metoprolol Monitor blood pressure DM II HbA1c 6.1 Hold oral medications Continue insulin while hospitalized per protocol Monitor blood glucose levels Normocytic Anemia Hb 10.4 today Denies any sign of abnormal bleeding such as hematuria or blood in stool Continue monitor CBC Further workup as outpatient Hypothyroidism Normal TSH Continue levothyroxine 112 mcg GI prophylaxis Continue pantoprazole DVT Px: Heparin SQ CODE STATUS Full code Disposition Home Total Time Total Time Spent Total Time Spent (In Minutes): 39 minutes Discharge Plan Discharge Items Patient Disposition: Home - Self-Care Reason For Visit: [place] Discharge Diagnosis: Neck/Periorbital Swelling: Cellulitis/Allergic reaction Possible Mastoiditis Condition on Discharge: Good Activity: Per Instructions section Exercise/Sports: Wait until after follow-up appointment Non-emergency contact: Primary Care Provider, Surgeon and Specialist Call non-emergency contact if: you have any medication questions, your symptoms worsen, your pain is concerning for you and you have a fever Follow-up/Referrals: Evelyn Cook DO [Primary Care Provider] - (The office will call you with a follow up appointment.) Diet: Carb Consistent or DM2 and Heart Healthy Addtl Attending Provider Instructions: Follow-up with your primary care physician in 1 week Follow-up with nerve specialist Dr. Gurrola for further evaluation as recommended Follow-up with your oromaxillary surgeon Dr. Perry in 1 week -- Complete the antibiotic course Augmentin as prescribed -- Complete prednisone tapering course as prescribed Prednisone tapering course Start taking prednisone 30 mg for 1 day, then 20 mg daily for 2 days, then 10 mg daily for 2 days then stop. Seek immediate medical attention if your symptoms reoccur or worsen Please review medication list provided on discharge for any medication changes as instructed. Please call if you have any questions or problems. You can reach a [facility] hospitalist on duty at [facility] 24 hours a day by calling [phone] Pending Studies at Discharge: No Stand-Alone Forms: My [facility], Smoking Cessation Medications and DC Order Prescriptions: New amoxicillin-pot clavulanate [Augmentin] 500-125 mg tablet 1 tab PO BID Qty: 12 0RF prednisone 10 mg tablet 10 mg PO DIRECTED Qty: 9 0RF Rx Instructions: Start taking prednisone 30 mg for 1 day, then 20 mg daily for 2 days, then 10 mg daily for 2 days then stop. Advanced Probiotic 625 mg (10 billion cell) Capsule 1 cap PO DAILY Qty: 7 0RF Continued atorvastatin 40 mg tablet 40 mg PO QAM metoprolol succinate 50 mg tablet extended release 24 hr 75 mg PO BID amlodipine 2.5 mg tablet 2.5 mg PO HS Vitamin B-12 50 mcg Tablet 0 mcg PO DAILY Rx Instructions: Patient unsure of dose pantoprazole 40 mg tablet,delayed release (DR/EC) 40 mg PO BID lisinopril 10 mg tablet 10 mg PO BID levothyroxine 112 mcg tablet 112 mcg PO QAM escitalopram oxalate 10 mg tablet 10 mg PO QAM metformin 750 mg tablet extended release 24 hr 750 mg PO QPM PreserVision AREDS-2 250-90-40-1 mg Capsule 1 tab PO DAILY Aspir-81 81 mg 1 tab PO DAILY Discharge Orders: Discharge Order (Routine); Ordered 11/11/24 Ordered By: Michael Navarro/Other Patient Handouts: Managing Type 2 Diabetes Admission Data Admit Date/Time: 11/10/24 20:51 Attending Provider: Michael Lancaster Admit Provider: Sydney Nelson Primary Care Provider: Evelyn Cook Other Providers: Sydney Nelson; Francisco Perry
[2024-11-11] MEDS: predniSONE 10 MG TABLET PO ONE (13:23)
[2024-11-12] MEDS ORDERED: ADVANCED PROBIOTIC 625 MG CAPSULE PO SCH (09:00)
== END 2024-11-11 13:49 | disposition home or self-care (01) | DRG 603 ==
LOC: ED 15:46 → 3E 20:51